=== PATIENT | male | born 1965 | race Caucasian/White ===

== ENCOUNTER 2019-12-25 20:52 | Emergency (ER) | payer BC ==
[~2019-12-25] VITALS: Ht 175.3 cm; Wt 81.6 kg
[2019-12-25 21:01] VITALS: BP_SYST 147
--- NOTE | 2019-12-25 21:01 | NUR ---
Patient to ER bed 2 to gown for evaluation. Side rails up.
--- NOTE | 2019-12-25 21:01 | NUR ---
Patient came to ER. C/O Laceration x today (~2 Hours [employer]STEUR[employer]) Patient states "fell while played football, No LOC, no pain." A/O, X4, Laceration 2 cm, left eye lid, denies pain, vss.
--- NOTE | 2019-12-25 21:10 | NUR ---
ER at bedside examining patient.
[2019-12-25] MEDS ORDERED: LIDOCAINE/EPI 1% 1:100000 20 ML VIAL INJ ONE ×2 (21:15→21:24)
[2019-12-25] MEDS ORDERED: BACITRACIN 1 GM OINT TP ONE ×2 (21:15→21:26)
--- NOTE | 2019-12-25 21:18 | NUR ---
Patient has a 2 cm laceration to left upper eye lid. Dr. Booker applied sutures using sterile technique. Edges well approximated. Site cleansed with NSS/Betadine. Dressing of Bacitricin applied to site. No bleeding noted. Pt tolerated well.
[2019-12-25 21:46] VITALS: BP_SYST 141
--- NOTE | 2019-12-25 21:46 | NUR ---
Patient given written and verbal discharge instructions and verbalizes understanding. ER MD discussed with patient the results and treatment provided. Patient in stable condition. ID arm band removed. NO Rx given. Patient educated on pain management and to follow up with PMD. Pain Scale 0/10. Opportunity for questions provided and answered. Medication side effect fact sheet provided.
== END 2019-12-25 21:46 | disposition home or self-care (01) ==
LOC: SED 20:52
DX: S01.112A Laceration without foreign body of left eyelid and periocular area, initial encounter (principal); E78.5 Hyperlipidemia, unspecified; I10 Essential (primary) hypertension; W18.39XA Other fall on same level, initial encounter; Y93.61 Activity, american tackle football; Y92.89 Other specified places as the place of occurrence of the external cause; Y99.8 Other external cause status
CPT/HCPCS: 99282